=== PATIENT | male | born 1940 | race African-American/Black ===

== ENCOUNTER 2025-02-11 15:55 | Inpatient (IN) | payer OTHER, MEDICAID ==
[~2025-02-11] VITALS: Ht 152.4 cm; Wt 79.4 kg
[2025-02-11] MEDS: DEXTROSE 50% WATER 50ML SYRINGE IV ONE (16:30)
[2025-02-11 17:10] LABS: BASOPHILS % 0.1 % (0.0-2.0); EOSINOPHILS % 1.4 % (0.0-5.0); HEMATOCRIT. 38.0 % (42.0-52.0); HEMOGLOBIN. 12.0 g/dL (14.0-18.0); LYMPHOCYTES % 23.8 % (20.0-50.0); MEAN PLATELET VOLUME 7.3 fl (7.4-10.4); MONOCYTES % 6.7 % (2.0-8.0); NEUTROPHILS % 68.0 % (40.0-76.0); PLATELET 166 x1000/uL (130-400); RED BLOOD CELL COUNT 4.47 mill/uL (4.7-6.1); RED CELL DISTRIBUTION WIDTH 17.1 % (11.6-14.6)
[2025-02-11 17:21] LABS: INR 1.0
[2025-02-11 17:25] LABS: CREATININE 0.8 mg/dL (0.6-1.3)
[2025-02-11 17:26] LABS: TROPONIN I HIGH SENSITIVITY 11 ng/L (3.0-53); UREA NITROGEN BLOOD 14 mg/dL (9-23)
[2025-02-11 17:27] LABS: ASPARTATE AMINOTRANSFERASE 18 IU/L (<34)
[2025-02-11 17:28] LABS: BILIRUBIN DIRECT 0.2 mg/dL (<=3.0); BILIRUBIN TOTAL 0.5 mg/dL (0.1-1.0); PROTEIN TOTAL 5.6 g/dL (6.0-8.3)
[2025-02-11] MEDS: LISINOPRIL 20MG TABLET PO NR (18:26)
[2025-02-11] MEDS: LOSARTAN 25 MG TABLET PO NR (18:26)
[2025-02-11] MEDS: ASPIRIN 325MG EC TABLET PO SCH (20:09)
[2025-02-11] MEDS: DEXTROSE 50% WATER 50ML SYRINGE IV NR (20:11)
[2025-02-11] MEDS ORDERED: MAGNESIUM/ALUMINUM HYDROXIDE/SIMETHICONE 30ML UDC PO PRN (22:00)
[2025-02-11] MEDS ORDERED: HYDROCODONE/ACETAMINOPHEN 5/325MG TABLET PO PRN (22:00)
[2025-02-11] MEDS ORDERED: ONDANSETRON HCL 4MG/2ML INJ IV PRN (22:00)
[2025-02-11] MEDS ORDERED: ZOLPIDEM TARTRATE 5MG TABLET PO PRN (22:00)
[2025-02-11] MEDS ORDERED: NALOXONE HCL 0.4MG/ML VIAL IV PRN (22:15)
[2025-02-11 22:24] VITALS: PULSE 91; RESP 17; O2SAT 98
[2025-02-11] MEDS: ALBUTEROL (0.083%) 2.5MG/3ML NEB HHN SCH (22:24)
[2025-02-11] MEDS: IPRATROPIUM BROMIDE (0.02%) 0.5MG/2.5ML NEB HHN SCH (22:24)
[2025-02-11 22:47] VITALS: PULSE 72; RESP 12; O2SAT 99
[2025-02-11] MEDS: ENOXAPARIN 40MG/0.4ML SYR SUBCUT SCH (23:00)
[2025-02-11 23:08] VITALS: PULSE 71; RESP 12; O2SAT 99
[2025-02-11] MEDS ORDERED: IOHEXOL-300 100 ML BOTTLE ONE (23:30)
[2025-02-12] VITALS: BP 186/82; PULSE 80; RESP 20; TEMP 36.2; O2SAT 98
[2025-02-12] MEDS: CLONIDINE 0.1MG TABLET PO PRN (00:32)
[2025-02-12 01:55] VITALS: BP 186/82; PULSE 80; RESP 18; TEMP 36.4736
[2025-02-12 04:00] VITALS: BP 99/51; PULSE 69; RESP 20; TEMP 36; O2SAT 96
[2025-02-12 08:00] VITALS: BP 137/55; PULSE 63; RESP 19; TEMP 36.4; O2SAT 97
[2025-02-12] MEDS: PANTOPRAZOLE SODIUM 40 MG/VIAL IV SCH (09:05)
[2025-02-12] MEDS: CLOPIDOGREL 75MG TABLET PO SCH (09:21)
[2025-02-12] MEDS: ASPIRIN 81MG EC TABLET PO SCH (09:21)
[2025-02-12] MEDS ORDERED: LIP40 PO (11:41)
[2025-02-12] MEDS ORDERED: ASPI-1406 PO (11:41)
[2025-02-12] MEDS ORDERED: CLOP-31 PO (11:41)
[2025-02-12 12:41] LABS: BASOPHILS % 0.1 % (0.0-2.0); EOSINOPHILS % 2.3 % (0.0-5.0); HEMATOCRIT. 42.6 % (42.0-52.0); HEMOGLOBIN. 13.5 g/dL (14.0-18.0); LYMPHOCYTES % 21.7 % (20.0-50.0); MEAN PLATELET VOLUME 7.5 fl (7.4-10.4); MONOCYTES % 7.4 % (2.0-8.0); NEUTROPHILS % 68.5 % (40.0-76.0); PLATELET 167 x1000/uL (130-400); RED BLOOD CELL COUNT 4.95 mill/uL (4.7-6.1); RED CELL DISTRIBUTION WIDTH 17.4 % (11.6-14.6)
[2025-02-12 12:58] LABS: CREATININE 0.8 mg/dL (0.6-1.3); TROPONIN I HIGH SENSITIVITY 14 ng/L (3.0-53); UREA NITROGEN BLOOD 7 mg/dL (9-23)
[2025-02-12] MEDS ORDERED: DEXTROSE 50% WATER 50ML SYRINGE IV PRN (20:15)
[2025-02-12 21:00] VITALS: BP 167/80; PULSE 104; RESP 22; TEMP 36.1; O2SAT 100
[2025-02-12] MEDS: ATORVASTATIN CALCIUM 40MG TABLET PO SCH (21:19)
[2025-02-12] MEDS: METHYLPREDNISOLONE SOD SUCC 40MG/ML (ACT-O-VIAL) IV SCH (21:19)
[2025-02-12] MEDS: INSULIN LISPRO 100 UNITS/ML SUBCUT SCH (21:21)
[2025-02-12] MEDS: BLOOD SUGAR DIAGNOSTIC STRIP TEST SCH (21:29)
[2025-02-12 22:25] VITALS: PULSE 93; RESP 20; O2SAT 95
[2025-02-12] MEDS: IPRATROPIUM/ALBUTEROL 0.5-3(2.5)MG/3ML NEB HHN SCH (22:25)
[2025-02-13] VITALS (9 sets, daily range): BP systolic 105–136; BP diastolic 72–77; PULSE 87–104; RESP 18–21; TEMP 36.3–36.8; O2SAT 95–98
[2025-02-13 06:03] LABS: CREATININE 0.9 mg/dL (0.6-1.3)
[2025-02-13 06:04] LABS: UREA NITROGEN BLOOD 12 mg/dL (9-23)
[2025-02-13 07:07] LABS: HEMATOCRIT. 42.3 % (42.0-52.0); HEMOGLOBIN. 13.7 g/dL (14.0-18.0); MEAN PLATELET VOLUME 7.8 fl (7.4-10.4); PLATELET 173 x1000/uL (130-400); RED BLOOD CELL COUNT 5.03 mill/uL (4.7-6.1); RED CELL DISTRIBUTION WIDTH 16.8 % (11.6-14.6)
[2025-02-13] MEDS ORDERED: ASPI-1497 MT (09:50)
[2025-02-13] MEDS ORDERED: LIP40 MT (09:50)
[2025-02-13] MEDS ORDERED: CLOP-31 MT (09:50)
[2025-02-13] MEDS ORDERED: ALBU18HF2 IH (09:50)
[2025-02-13] MEDS ORDERED: METH4TAB95 MT (09:50)
[2025-02-13] MEDS: ACETAMINOPHEN 325MG TABLET PO PRN (12:41)
[2025-02-13 23:55] LABS: LYMPHOCYTES % MANUAL 8.0 % (20.0-50.0); MONOCYTES % MANUAL 6.0 % (2.0-8.0); NEUTROPHILS % MANUAL 86.0 % (45.0-75.0); PLATELET ESTIMATE NORMAL
[2025-04-02] MEDS ORDERED: CALC1TAB MT (10:23)
[2025-04-02] MEDS ORDERED: BISO5TAB13 MT (10:23)
[2025-04-02] MEDS ORDERED: IPRA4AER INH (10:23)
[2025-04-02] MEDS ORDERED: FOLI-43 MT (10:23)
[2025-04-02] MEDS ORDERED: LISI20TA31 MT (10:23)
[2025-04-02] MEDS ORDERED: METH2.5T MT (10:23)
[2025-04-02] MEDS ORDERED: INSU100I28 SQ (10:23)
[2025-04-02] MEDS ORDERED: TAMS-54 PO (10:23)
[2025-04-02] MEDS ORDERED: FURO20TA4 MT (10:23)
[2025-04-02] MEDS ORDERED: FLUT1BLS10 IH (10:23)
== END 2025-02-13 13:13 | disposition home or self-care (01) | DRG 72 ==
LOC: ER 15:55 → 8WST 21:49 → EDBEDREQ 21:57 → EDBEDREQSVC 21:57 → EDBEDREQTM 21:57 → ENRESERV 22:30
PROVIDERS: ADMIT Internal Medicine; ATTEND Internal Medicine
DX: G93.41 Metabolic encephalopathy (principal); E11.649 Type 2 diabetes mellitus with hypoglycemia without coma; I10 Essential (primary) hypertension; J43.9 Emphysema, unspecified; Z55.6 Problems related to health literacy; Z79.82 Long term (current) use of aspirin; Z87.891 Personal history of nicotine dependence; Z88.0 Allergy status to penicillin; Z88.2 Allergy status to sulfonamides
CPT/HCPCS: 36415; 70496; 70498; 71045; 80048; 80076; 80320; 82962; 83036; 84443; 84484; 85025; 93005; 93970; 94070; 94640; 94664; 96374; 96376; 98960; 99291; A4615; J1650; J1815; J2470; J2919; Q9967; G0480